=== PATIENT | male | born 1955 | race Caucasian/White ===

== ENCOUNTER 2016-05-10 15:07 | Inpatient (IN) | payer BC ==
--- NOTE | ~2016-05-10 | TN ---
Unit #: [id number] #: [id number] Patient: NIKKI BARGER [id number] [facility] [address] [place] [address] [id number] MR#: [id number] NAME: NIKKI BARGER. ROOM: P209 Age: 61 Sex: M Admission Date: 05/10/2016 : 1955 Discharge Date: 05/14/2016 Attending Physician: Chandan Eric M.D. Primary Care Physician: Primary Care Physician No LOC TRANSFER NOTE DATE OF SERVICE: 05/15/2016 DATE OF SERVICE 05/15/2016. HISTORY OF PRESENT ILLNESS Mr. Barger is a 61-year-old white male, who was stepped down to the outpatient treatment program from the adult inpatient chemical dependency unit, where he was hospitalized under my care from 05/10/2016 to 05/14/2016 and was medically detoxed from alcohol and was stepped down to the outpatient treatment program. When seen by me, however, he reports that he has been doing fairly well and has been taking the medications and tolerating them fairly well and has been coming to therapy groups and has been staying sober, but however, he states that his only issue is lack of sleep as he states that he slept only 30 minutes last night. SUBSTANCE ABUSE HISTORY The patient has a long history of alcohol dependence, and he describes alcohol to be his drug of choice and denies any other drug abuse. PAST PSYCHIATRIC HISTORY The patient has had a history of inpatient and outpatient psychiatric treatment and has been diagnosed and treated for alcohol dependence and mood disorder. Currently, he is not active in any treatment program and is not seeing a psychiatrist and is not taking any psychotropic medications. PAST MEDICAL HISTORY No acute or chronic medical illnesses. PERSONAL AND SOCIAL HISTORY A 61-year-old white male, who reports that he is unemployed and lives with his roommates and has fairly decent social support system. MENTAL STATUS EXAMINATION An elderly white male, who was casually dressed with fair personal hygiene, appears to be in no acute distress or discomfort. He was awake and alert on interaction with intact orientation. His mood was anxious with a congruent affect. He denies any suicidal or homicidal ideations. His insight and judgment remain slightly impaired. DIAGNOSTIC IMPRESSION Psychiatric: Alcohol dependence, moderate; in acute withdrawal and Unit #: [id number] #: [id number] Patient: NIKKI BARGER alcohol-induced mood disorder. Medical: None. Stressors: Moderate psychosocial stressors. TREATMENT PLAN 1. The patient has presented with a history of alcohol dependence. We will recommend enrolling him into the intensive outpatient treatment program for chemical dependency. We will start him on doxepin to help with sleep. 2. Supportive therapy was provided to the patient. ESTIMATED LENGTH OF STAY 14 to 21 days. ABILITY TO HELP SELF Limited. WILLINGNESS TO HELP SELF The patient appears to be willing to help self. STRENGTHS 1. Communicative. 2. Cooperative. PROBLEMS 1. Chronic chemical dependency. 2. Chronic dysphoric symptoms. DISCHARGE CRITERIA This will be contingent upon the patient's ability to show resolution of his depression and anxiety as well as his ability to stay safe and sober, particularly after discharge from the program. Dictated by... Kenya Valdez/demarco TD: 05/15/2016 19:33 JOB #: [id number] LOC TRANSFER NOTE Page 1 of 1 X Chandan Eric MD X LOC TRANSFER NOTE
--- NOTE | ~2016-05-10 | PA ---
Unit #: [id number] #: [id number] Patient: NIKKI BARGER [id number] [facility] [address] [place] [address] [id number] I MR#: [id number] NAME: NIKKI BARGER. ROOM: P209 Age: 61 Sex: M Admission Date: 05/10/2016 : 1955 Date of Assessment: Attending Physician: Chandan Eric M.D. Admitting Physician: Chandan Eric M.D. PSYCHIATRIC ASSESSMENT DATE OF SERVICE 05/10/2016. IDENTIFYING DATA Mr. Barger is a 61-year-old single white male, who is a resident of [place], [place], and is known to us from previous encounter and was self-referred to the hospital. CHIEF COMPLAINT "Alcohol abuse and I'm trying to get my life back together." HISTORY OF PRESENT ILLNESS Mr. Barger is a 61-year-old white male with long history of alcohol dependence, who was recently active under my care and was actively medically detoxed in 03/2016 and left on 03/27/2016 after finishing the medical detox; however, he now presents with a blood alcohol level of 0.152 and reports that he wants to get detoxed and that he has been abusing alcohol and is trying to get his life back together, and he reports that his life is getting out of control related to his drinking. He reports that he was doing good for a short period of time after getting out of the hospital and then he ended up relapsing and now reports drinking vodka on a daily basis and last drink was a couple of hours before coming to the hospital. He was seen to be rather anxious, withdrawn, unkempt, disheveled with sweats and body odor and tremors and shakes and slurred speech and stated that he is unsteady on his feet and has been having difficulty performing activities of daily living including taking care of his personal hygiene and did appear to be in some distress and discomfort and reports that he has estranged relationship with most of the people because of his drinking and that he has not been eating and sleeping good. He has been feeling depressed and feeling hopeless, but denies any suicidal ideations, intent, or plan. SUBSTANCE ABUSE HISTORY The patient reports alcohol to be his drug of choice and has been drinking since he was 16 years old and currently has been drinking 2 pints of vodka on a daily basis, with the last drink being a couple of hours before coming to the hospital and blood alcohol level was 0.152. PAST PSYCHIATRIC HISTORY The patient has had a history of multiple inpatient psychiatric hospitalizations at [facility], and review of the medical records indicated currently he is not active in any treatment program and is not seeing a psychiatrist and is not taking any psychotropic medications. Unit #: [id number] #: [id number] Patient: NIKKI BARGER PAST MEDICAL HISTORY COPD. ALLERGIES No known medication allergies. CURRENT MEDICATIONS None. FAMILY HISTORY The patient denies any known history of mental illness or substance abuse in the family. DEVELOPMENTAL HISTORY The patient denies any history of learning disability or developmental delays and also denies any history of physical or sexual abuse during childhood. PERSONAL AND SOCIAL HISTORY A 61-year-old white male, who reports that he is single, unemployed, and lives with a couple of roommates and has poor social support system. MENTAL STATUS EXAMINATION Middle-aged white male, who was casually dressed with fair personal hygiene, appears to be in no acute distress or discomfort. He was awake and alert on interaction with intact orientation to time, place, and person. His mood was anxious and depressed with a congruent affect. His speech was slow and restricted in content. His thought processes were disorganized with some looseness of associations. He denies any suicidal or homicidal ideations and also denies any auditory or visual hallucinations. His insight and judgment remain significantly impaired. DIAGNOSTIC IMPRESSION Psychiatric: Alcohol dependence, moderate, in acute withdrawals and alcohol-induced mood disorder. Medical: Chronic obstructive pulmonary disease. Stressors: Moderate psychosocial stressors. TREATMENT PLAN 1. The patient has presented with a history of substance abuse and dependence and appears to be in significant distress and discomfort. We will recommend inpatient medical detox. Alcohol detox protocol will be initiated. 2. Supportive therapy was provided to the patient. 3. Safe, structured, and nourishing environment will be provided. ESTIMATED LENGTH OF STAY 5 to 7 days. ABILITY TO HELP SELF Limited. WILLINGNESS TO HELP SELF The patient appears to be willing to help self. STRENGTHS 1. Communicative. 2. Cooperative. Unit #: [id number] #: [id number] Patient: NIKKI BAGRER PROBLEMS 1. Chronic dysphoric symptoms. 2. Chronic chemical dependency. 3. Poor social support system. DISCHARGE CRITERIA This will be contingent upon the patient's ability to go through detox without having any significant withdrawal symptoms as well as his ability to stay safe to himself, particularly after discharge from the hospital. Dictated by... Kenya Valdez/demarco TD: 05/11/2016 11:28 JOB #: [id number] PSYCHIATRIC ASSESSMENT Page 1 of 1 X Chandan Eric MD X PSYCHIATRIC ASSESSMENT
--- NOTE | ~2016-05-10 | DS ---
Unit #: [id number] #: [id number] [facility]: [facility] BARGER [id number] [facility] [address] [place] [address] [id number] I MR#: [id number] NAME: NIKKI BARGER. ROOM: P209 Age: 61 Sex: M Admission Date: 05/10/2016 : 1955 Discharge Date: 05/14/2016 Attending Physician: Chandan Eric M.D. Primary Care Physician: Primary Care Physician No DISCHARGE SUMMARY IDENTIFYING DATA Mr. Barger is a 61-year-old white male, who is a resident of [place], [place], and is known to us from previous encounter, was self-referred to the hospital. DISCHARGE DIAGNOSES Psychiatric: Alcohol dependence, moderate and acute withdrawals; alcohol-induced mood disorder. Medical: Chronic obstructive pulmonary disease. Stressors: Moderate psychosocial stressors. HISTORY OF PRESENT ILLNESS Please see initial psychiatric evaluation for details. PAST PSYCHIATRIC HISTORY Please see initial psychiatric evaluation for details. PAST MEDICAL HISTORY Please see initial psychiatric evaluation for details. HOSPITAL COURSE The patient was admitted to the adult chemical dependency and psychiatric unit at [facility] and was oriented to the hospital environment. Routine p.r.n. medications were initiated, and he was started back on his home medications and medications were adjusted and he was closely monitored. He was taking the medications regularly and was tolerating them fairly well and was able to show a decent and therapeutic response and as such, it was decided he will be discharged home and will continue treatment on an outpatient basis. DISCHARGE MEDICATIONS None. DISCHARGE CONDITION Stable. PROGNOSIS Fair. Dictated by... Chandan Eric M.D. IAA/modl Unit #: [id number] #: [id number] Patient: NIKKI BARGER TD: 05/14/2016 07:31 JOB #: [id number] DISCHARGE SUMMARY Page 1 of 1 X Chandan Eric MD X DISCHARGE SUMMARY
--- NOTE | ~2016-05-10 | PN ---
Unit #: [id number] #: [id number] Patient: NIKKI BARGER [id number] [facility] [address] [place] [address] [id number] I MR#: [id number] NAME: NIKKI BARGER. ROOM: P209 Age: 61 Sex: M Admission Date: 05/10/2016 : 1955 Attending Physician: Chandan Eric M.D. Admitting Physician: Chandan Eric M.D. Primary Care Physician: Primary Care Physician Sandrine ROSENBERG PROGRESS NOTES DATE OF SERVICE: 05/12/2016 SUBJECTIVE Mr. Barger is a 61-year-old white male with substance abuse and mood disorder, who was seen today and chart was reviewed and case was discussed with the staff. He was seen to be anxious, withdrawn and in some distress or discomfort and he goes to detox. Meanwhile, he has been taking the medications and tolerating them fairly well with no reported side effects. MENTAL STATUS EXAMINATION Middle-aged white male who was casually dressed with a fair personal hygiene, appears to be in no acute distress or discomfort. He was awake and alert with impaired attention and concentration. His mood was anxious with a congruent affect. He denies any suicidal or homicidal ideations. His insight and judgment remain slightly impaired. TREATMENT PLAN 1. We will continue him on his current treatment protocol. We will monitor his response to medications and make further adjustments as needed. 2. We will continue to follow up. Dictated by... Kenya Valdez/demarco TD: 05/13/2016 00:01 JOB #: [id number] [facility] PROGRESS NOTES Page 1 of 1 X Chandan Eric MD PROGRESS NOTE
--- NOTE | ~2016-05-10 | HP ---
Unit #: [id number] #: [id number] Patient: JULIEN KOHLER [id number] [place] [address] [id number] I MR#: [id number] NAME: JULIEN KOHLER. ROOM: P209 Age: 61 Sex: M Admission Date: 05/10/2016 : 1955 Attending Physician: Chandan Eric M.D. Admitting Physician: Chandan Eric M.D. Primary Care Physician: Primary Care Physician No HISTORY AND PHYSICAL HISTORY OF PRESENT ILLNESS Julien is a 61-year-old male admitted to [address] [place] [address] on 05/10/2016 for detox from alcohol. PAST MEDICAL HISTORY COPD. PAST SURGICAL HISTORY 1. Back surgery in 1997. 2. Cholecystectomy. 3. Appendectomy. ALLERGIES None. SOCIAL HISTORY Smokes 1-1/2 packs of cigarettes daily. Drinks 1-1/2 pints of alcohol daily. No illegal drug use. He is currently single and living alone. FAMILY HISTORY Noncontributory. REVIEW OF SYSTEMS CONSTITUTIONAL: No fever or chills. HEENT: Denies any sore throat, ear pain or runny nose. CARDIOVASCULAR: Denies chest pain, irregular heart rhythm or palpitations. CHEST: Denies shortness of breath or cough. No hemoptysis. GASTROINTESTINAL: Denies nausea, vomiting, diarrhea or chronic constipation. ENDOCRINE: Denies history of increased thirst or urination. No recent significant weight loss or gain. GENITOURINARY: Denies dysuria, frequency, or hematuria. SKIN: Denies any rashes. HEMATOLOGIC: Denies history of increased bleeding or bruising. MUSCULOSKELETAL: Denies any hot, swollen joints. No generalized muscle pain. NEUROLOGIC: Denies problems with vision or speech. No frequent, severe headaches. No numbness, tingling or weakness in any extremities. Denies loss of bladder or bowel control. CURRENT MEDICATIONS None. Unit #: [id number] #: [id number] Patient: JULIEN KOHLER PHYSICAL EXAMINATION GENERAL: Alert, oriented, in no acute distress. VITAL SIGNS: Blood pressure 143/75, heart rate 103, respirations 20, temperature 98.1. HEIGHT: 6 feet 3. WEIGHT: 175 pounds. SKIN: Warm and dry without rash or lesion. HEENT: Normocephalic. TMs not viewed. Oral and nasal passages clear. Conjunctivae clear. PERRLA. EOMs intact. NECK: Supple without lymphadenopathy or thyromegaly. HEART: Regular rate and rhythm without murmur. LUNGS: Clear. ABDOMEN: Soft, nontender, without masses or hepatosplenomegaly. : Not done. EXTREMITIES: No evidence of cyanosis, clubbing or edema. Moves all without focal deficit. NEUROLOGICAL: Grossly within normal limits. Cranial Nerves: II: Visual de luna are intact. III, IV AND : Extraocular movements are intact. Pupils are equal, round and reactive to light. V: Facial sensation is grossly normal. VII: Facial movements and expression are normal. VIII: Auditory acuity grossly intact. IX, X: Uvula is midline. Phonation is normal. XI: Patient shrugs shoulders and turns head normally. XII: Tongue protrudes in the midline. Sensory and Motor Function: Sensory and motor sensation is grossly normal. Motor: moves all extremities well. Coordination: Gait is normal. Deep Tendon Reflexes: Intact. IMPRESSION 1. Psychiatric admission. 2. COPD. RECOMMENDATIONS PSYCHIATRIC: Per psychiatrist. MEDICAL: No contraindications to participate in facility's activities. MEDICAL PROGNOSIS Good. MEDICAL CONDITION Stable. Dictated by... Pj Springer/rodger TD: 05/11/2016 18:38 JOB #: [id number] Unit #: [id number] #: [id number] Patient: JULIEN KOHLER HISTORY AND PHYSICAL Page 1 of 1 X ANSHUL QUINN APRN HISTORY AND PHYSICAL
--- NOTE | ~2016-05-10 | PN ---
Unit #: [id number] #: [id number] Patient: NIKKI BARGER [id number] [facility] [address] [place] [address] [id number] I MR#: [id number] NAME: NIKKI BARGER. ROOM: P209 Age: 61 Sex: M Admission Date: 05/10/2016 : 1955 Attending Physician: Chandan Eric M.D. Admitting Physician: Chandan Eric M.D. Primary Care Physician: Primary Care Physician Sandrine SINGH NOTES DATE 05/11/2016 DISCUSSION Mr. Barger is a 61-year-old, white male who was seen today and chart was reviewed and case was discussed with the staff. He has been anxious, withdrawn and in distress and discomfort and was unkept, disheveled and shaky, tremulous and wetting in his bed and actively detoxing. However, he has been polite and pleasant and maintaining a pleasant (1) towards treatment and has been comfortable to work with. MENTAL STATUS EXAM Middle-aged white male who was casually dressed with marginal personal hygiene, appears to be in distress or discomfort. He was awake and alert on interaction with intact orientation. His mood was anxious with congruent affect. His speech was slow and restricted in content. His thought process are organized. He denies any suicidal or homicidal ideation. Also, denies any auditory or visual hallucinations. His insight and judgement remains slightly impaired. TREATMENT PLAN 1. We will continue him on his current medications and detox protocol and level of precaution. We will monitor his response and make further adjustments as needed. 2. We will continue to follow up. Dictated by... Kenya Valdez/nicolasa TD: 05/13/2016 03:24 JOB #: [id number] Unit #: [id number] #: [id number] Patient: NIKKI BARGERARTEMIO PROGRESS NOTES Page 1 of 1 X Chandan Eric MD PROGRESS NOTE
--- NOTE | ~2016-05-10 | PN ---
Unit #: [id number] #: [id number] Patient: NIKKI BARGER [id number] [facility] [address] [place] [address] [id number] I MR#: [id number] NAME: NIKKI BARGER. ROOM: P209 Age: 61 Sex: M Admission Date: 05/10/2016 : 1955 Attending Physician: Chandan Eirc M.D. Admitting Physician: Chandan Eric M.D. Primary Care Physician: Primary Care Physician Sandrine ROSENBERG PROGRESS NOTES DATE May 13, 2016 DISCUSSION Mr. Barger is a 61-year-old white male, with alcohol dependence, and mood disorder, who was seen today and chart was reviewed and the case was discussed with the staff. He has been anxious, withdrawn, but has not shown any agitation, irritability, and has been cooperative with the treatment recommendations. He has been taking the medications and tolerating them fairly well with no reported side effects. MENTAL STATUS EXAMINATION Middle-aged white male, who was casually dressed with fair personal hygiene and appears to be in no acute distress or discomfort. He was awake and alert on interaction with intact orientation. His mood is anxious with a congruent affect. His speech is slow and goal-directed. His thought processes are disorganized. He denies any suicidal or homicidal ideations, and also denies any auditory or visual hallucinations. His insight and judgment remain slightly impaired. TREATMENT PLAN 1. We will continue him on his current medications and treatment protocol, and will monitor his response to the medications, and make further adjustments as needed. 2. We will continue to followup. Dictated by... Kenya Valdez/aimee TD: 05/15/2016 05:21 JOB #: [id number] Unit #: [id number] #: [id number] Patient: NIKKI BARGER PROGRESS NOTES Page 1 of 1 X Chandan Eric MD PROGRESS NOTE
[~2016-05-10 15:07] MED LIST: AZITHROMYCIN500 MG PO; COMBIVENT U/D3 M2 INH; HUMIBID-LA600 MG PO; NO MEDICATIONS
[2016-05-11 11:47] LABS: BASOPHIL# 0.1 X10e3 (0-0.3); BASOPHIL% 0.7 % (0-2.5); EOSINOPHIL# 0.4 X10e3 (0-0.7); EOSINOPHIL% 4.9 % (0.0-7.0); HEMATOCRIT 43.8 % (38.0-50.0); HEMOGLOBIN 14.3 gm/dL (13.0-16.0); LYMPHOCYTE% 26.2 % (17.0-45.0); MEAN CELL VOLUME 94.7 FL (83-96); MEAN CORPUSCULAR HEMOGLOBIN 30.9 PG (28-34); MEAN CORPUSCULAR HGB CONC 32.6 g/dL (30-36); MEAN PLATELET VOLUME 8.6 FL (6.5-11.5); MONOCYTE# 0.5 X10e3 (0-1.0); MONOCYTE% 6.1 % (3.0-12.0); NEUTROPHIL# 4.7 X10e3 (1.5-7.1); NEUTROPHIL% 62.1 % (40-75); PLATELET COUNT 276 X10e3 (140-420); RED BLOOD COUNT 4.62 X10e (3.90-5.60); RED CELL DISTRIBUTION WIDTH 14.1 % (11.0-15.5); WHITE BLOOD COUNT 7.6 X10e3 (4.0-10.5)
[2016-05-11 11:57] LABS: DIFF IND NO
[2016-05-11 12:01] LABS: THYROID STIMULATING HORMONE 0.9 uIU/ml (0.34-5.60)
[2016-05-11 12:06] LABS: ALBUMIN SERUM 3.8 g/dL (3.5-5.0); BILIRUBIN,TOTAL 2.1 mg/dL (0.2-2.0); BUN/CREATININE RATIO 24.28; CALCIUM SERUM 8.9 mg/dL (8.4-10.2); CREATININE SERUM 0.7 mg/dL (0.6-1.4); GLOM FILT RATE Estimated 102.6 mL/min (>60); POTASSIUM 4.3 mmol/L (3.5-5.1); PROTEIN TOTAL SERUM 6.6 g/dL (6.0-8.3)
[2016-05-11 12:08] LABS: FREE THYROXIN (T4) 0.99 ng/dL (0.58-1.64)
[2016-05-12 11:33] LABS: URINE APPEARANCE TURBID; URINE BLOOD NEG (NEG); URINE COLOR DK YELLOW; URINE GLUCOSE NEG (NEG); URINE KETONE 1+ (NEG); URINE LEUKOCYTE ESTERASE TRACE (NEG); URINE NITRATE NEG (NEG); URINE PROTEIN TRACE (NEG); URINE SPECIFIC GRAVITY 1.029 (1.003-1.035)
[2016-05-12 11:37] LABS: URINE BACTERIA AUWI NEG (NEGATIVE); URINE SQUAMOUS EPITHELIAL CELL NONE SEEN /[HPF]; UWBCS1 AUWI 0-2 (0-5)
[2016-05-12 11:58] LABS: URINE BILIRUBIN NEG (NEG)
[2016-05-12 12:26] LABS: AMPHETAMINE NEG (NEG); BARBITURATES NEG (NEG); BENZODIAZEPINES POS (NEG); COCAINE NEG (NEG); MARIJUANA NEG (NEG); OPIATES NEG (NEG); TRICYCLIC ANTIDEPRESSANTS NEG (NEG); U METHADONE NEG (NEG)
== END 2016-05-14 12:21 | DRG 897 ==
LOC: P2S 15:07
PROVIDERS: Psychiatry & Neurology Psychiatry
PROC: HZ2ZZZZ Detoxification Services for Substance Abuse Treatment (ICD-10-PCS; principal; 2016-05-10)
DX: F10.239 Alcohol dependence with withdrawal, unspecified (principal); F10.24 Alcohol dependence with alcohol-induced mood disorder; J44.9 Chronic obstructive pulmonary disease, unspecified; F17.200 Nicotine dependence, unspecified, uncomplicated; Z56.0 Unemployment, unspecified
CPT/HCPCS: 80053; 80307; 81003; 84439; 84443; 85025; 86592

== ENCOUNTER 2016-07-01 18:34 | Emergency (ER) | payer BC ==
--- NOTE | ~2016-07-01 | CR72 ---
[facility] A Service of [facility] RADIOLOGY TEXT RESULTS PATIENT: NIKKI KOHLER LOCATION: [facility] : 57 UNIT #: [id number] AGE: [address]: Yossi Herrera MD SEX: M ORDER DR: [id number] [facility] [address] [place], [place] [address] [id number] E MR#: [id number] Acc #: [id number] NAME: NIKKI KOHLER : 1955 SEX: M STUDY DATE/TIME: 07/01/2016 22:19 UNIT: [facility] ROOM: STUDY DESCRIPTION: CR Chest Single View Portable Attending Physician: Yossi Herrera M.D. Ordering Physician: Yossi Herrera M.D. Primary Care Physician: Primary Care Physician No MEDICAL IMAGING REPORT This report is preliminary unless electronic signature is present EXAM Portable chest, 07/01 at 22:19 INDICATIONS Shortness of air with activity, cough, congestion. Symptoms started 2 weeks ago but worsened today. History of smoking. FINDINGS AP portable views of the chest are compared with 03/13/2016. Lungs are emphysematous but clear. Cardiac and mediastinal contours are normal. There is no pneumothorax. IMPRESSION Emphysema. No active disease. Dictated by... Caesar Renner Jr., M.D. THIS IS AN ELECTRONICALLY VERIFIED REPORT Caesar Renner Jr., M.D. at 07/02/2016 6:01 AM YUMIKOK/alyssa TD: 07/02/2016 03:30 JOB #: [id number] MEDICAL IMAGING REPORT Page 1 of 1 COPY
--- NOTE | ~2016-07-01 | CT16 ---
[facility] A Service of [facility] & [facility] RADIOLOGY TEXT RESULTS PATIENT: NIKKI KOHLER LOCATION: [facility] : 57 UNIT #: [id number] AGE: [address]: Yossi Herrera MD SEX: M ORDER DR: [id number] [facility] [address] [place], [place] [address] [id number] MR#: [id number] Acc #: [id number] NAME: NIKKI KOHLER. : 1955 SEX: M STUDY DATE/TIME: 07/02/2016 01:14 UNIT: [facility] ROOM: STUDY DESCRIPTION: CT Angio Chest for PE Attending Physician: Yossi Herrera M.D. Ordering Physician: Yossi Herrera M.D. Primary Care Physician: Primary Care Physician No MEDICAL IMAGING REPORT This report is preliminary unless electronic signature is present EXAM Chest CTA 07/02 01:14 INDICATIONS Shortness of air, cough and congestion for the last 2 weeks. Elevated D-dimer. History of COPD. TECHNIQUE Axial images were obtained through the chest following IV contrast administration. 3-D reformats were obtained. Comparison made with 11/12/2015. This CT exam was performed with one or more of the following radiation dose reduction techniques: automatic exposure control, adjustment of mA and/or kV according to patient size, and iterative reconstruction. FINDINGS There is no pulmonary embolism or aortic dissection. There is no pleural or pericardial effusion. There is no adenopathy. There is emphysema. There is some mild infiltrate in the left lower lobe which may reflect an early pneumonia. Some of this could also reflect postinflammatory scarring as patient previously had infiltrates in this area. No suspicious pulmonary nodules are identified. Upper abdomen demonstrates cholecystectomy. There are adrenal calcifications on the right side which are unchanged and may reflect prior adrenal hemorrhage. There is fatty infiltration of the liver. IMPRESSION 1. No pulmonary embolism or aortic dissection. 2. Emphysema. 3. Minimal amount of alveolar infiltrate in the left lower lobe is probably due to mild acute pneumonia. Some of this could be due to postinflammatory scarring, however, as the patient had fairly [facility] A Service of [facility] & [facility] RADIOLOGY TEXT RESULTS PATIENT: NIKKI KOHLER LOCATION: [facility] #: [id number] : 57 UNIT #: [id number] AGE: [address]: Yossi Herrera MD SEX: M ORDER DR: pronounced infiltrate in the left lower lobe on the prior chest CT. 4. Fatty liver. Dictated by... Caesar Renner Jr., M.D. THIS IS AN ELECTRONICALLY VERIFIED REPORT Caesar Renner Jr., M.D. at 07/03/2016 5:52 AM Monica TD: 07/02/2016 06:35 JOB #: [id number] MEDICAL IMAGING REPORT Page 1 of 1 COPY
--- NOTE | ~2016-07-01 | EKG ---
PATIENT: NIKKI KOHLER UNIT #: [id number] Ventricular Rate: 99 BPM Atrial Rate: 99 BPM P-R Interval: 134 ms QRS Duration: 90 ms Q-T Interval: 338 ms QTC Calculation(Bezet): 433 ms P Rolfe: 82 degrees Calculated R Rolfe: 44 degrees Calculated T Rolfe: 69 degrees Diagnosis Line: Normal sinus rhythm with sinus arrhythmia Diagnosis Line: Right atrial enlargement Diagnosis Line: Borderline ECG Diagnosis Line: When compared with ECG of 12-MAR-2016 23:18, Diagnosis Line: No significant change was found Diagnosis Line: Confirmed by ALMA DELIA WOODARD MD ([id number]) on Diagnosis Line: 07/02/2016 1:31:36 PM INTERPRETING MD: VANCE MELGAR
[2016-07-01 19:13] LABS: BASOPHIL# 0.1 X10e3 (0-0.3); BASOPHIL% 0.6 % (0-2.5); EOSINOPHIL% 0.1 % (0.0-7.0); HEMATOCRIT 43.5 % (38.0-50.0); HEMOGLOBIN 14.7 gm/dL (13.0-16.0); LYMPHOCYTE# 1.2 X10e3 (1.0-3.5); LYMPHOCYTE% 11.9 % (17.0-45.0); MEAN CELL VOLUME 95.7 FL (83-96); MEAN CORPUSCULAR HEMOGLOBIN 32.3 PG (28-34); MEAN CORPUSCULAR HGB CONC 33.8 g/dL (30-36); MEAN PLATELET VOLUME 8.3 FL (6.5-11.5); MONOCYTE# 0.8 X10e3 (0-1.0); MONOCYTE% 7.8 % (3.0-12.0); NEUTROPHIL# 8.1 X10e3 (1.5-7.1); NEUTROPHIL% 79.6 % (40-75); PLATELET COUNT 263 X10e3 (140-420); RED BLOOD COUNT 4.55 X10e (3.90-5.60); RED CELL DISTRIBUTION WIDTH 15.3 % (11.0-15.5); WHITE BLOOD COUNT 10.1 X10e3 (4.0-10.5)
[2016-07-01 19:15] LABS: DIFF IND NO
[2016-07-01 19:25] LABS: POC - CKMB 3.5 ng/mL (0.0-7.9); POC - TROPONIN <0.05 ng/mL (<=0.05)
[2016-07-01 19:38] LABS: ALBUMIN SERUM 4.2 g/dL (3.5-5.0); BILIRUBIN, DIRECT 0.3 mg/dL (0.0-0.2); BILIRUBIN,INDIRECT 1.7 mg/dL (0.0-0.9); CALCIUM SERUM 8.7 mg/dL (8.4-10.2); CREATININE SERUM 1.1 mg/dL (0.6-1.4); GLOM FILT RATE Estimated 72.6 mL/min (>60); POTASSIUM 4.6 mmol/L (3.5-5.1); PROTEIN TOTAL SERUM 7.1 g/dL (6.0-8.3)
[2016-07-01 22:38] LABS: POC - CKMB 2.4 ng/mL (0.0-7.9); POC - TROPONIN <0.05 ng/mL (<=0.05)
== END 2016-07-02 03:35 | disposition home or self-care (01) ==
LOC: CED 18:34
PROVIDERS: Emergency Medicine
DX: J18.1 Lobar pneumonia, unspecified organism (principal); J44.9 Chronic obstructive pulmonary disease, unspecified; F17.200 Nicotine dependence, unspecified, uncomplicated
CPT/HCPCS: 36415; 71010; 71275; 80048; 80076; 82553; 84484; 85025; 85379; 93005; 94640; 96365; 99284; J0696; Q9967

== ENCOUNTER 2016-07-16 22:32 | Emergency (ER) | payer BC ==
--- NOTE | ~2016-07-16 | CT16 ---
[facility] A Service of [facility] & [facility] RADIOLOGY TEXT RESULTS PATIENT: NIKKI KOHLER LOCATION: [facility] : 57 UNIT #: [id number] AGE: [address]: CALEB SILVA APRN SEX: M ORDER DR: [id number] [facility] [address] [place], [place] [address] [id number] MR#: [id number] Acc #: [id number] NAME: NIKKI KOHLER. : 1955 SEX: M STUDY DATE/TIME: 07/17/2016 6:10 UNIT: [facility] ROOM: STUDY DESCRIPTION: CT Angio Chest for PE Attending Physician: Caleb Silva Aprn Ordering Physician: Caleb Silva Aprn Primary Care Physician: Primary Care Physician No MEDICAL IMAGING REPORT This report is preliminary unless electronic signature is present EXAM CT chest with pulmonary embolus protocol INDICATION Elevated D-dimer, cough, congestion for 2 weeks. TECHNIQUE Spiral imaging was performed through the chest with IV contrast and 3-D reconstructions of the pulmonary arteries were generated. This CT examination was performed with one or more of the following radiation dose reduction techniques: automatic exposure control, adjustment of mA and/or kV according to patient size, and iterative reconstruction. FINDINGS The visualized portions of the upper abdomen are normal. The aorta is normal in size. There is optimum opacification of the pulmonary arteries and there is no CT evidence of pulmonary embolus. The visualized thyroid gland is normal. There are 2 small noncalcified nodules in the right middle lobe measuring 4 and 5 mm in size. They are unchanged from 11/12/2015 which is about an 8 month follow up. Otherwise, the lungs are clear. The bones are unremarkable. IMPRESSION 1. There are no infiltrates and there is no evidence of pulmonary embolus. 2. There are 2 noncalcified nodules in the right middle lobe measuring 4 and 5 mm in diameter. Those nodules have been present on the prior 2 studies including the 11/12/2015 study so they have been documented as stable for 8 months. Unless there are older studies showing longer term stability, consider repeating the CT scan in approximately 1 year which could be a low-dose lung cancer screening study. 3. Otherwise, the study is negative. [facility]. [facility] A Service of [facility] & [facility] RADIOLOGY TEXT RESULTS PATIENT: NIKKI KOHLER LOCATION: [facility] : 57 UNIT #: [id number] AGE: [address]: CALEB SILVA APRN SEX: M ORDER DR: Dictated by... Scar Wilkinson M.D. THIS IS AN ELECTRONICALLY VERIFIED REPORT Scar Wilkinson M.D. at 07/17/2016 11:53 AM XOCHILT/tod TD: 07/17/2016 10:32 JOB #: [id number] MEDICAL IMAGING REPORT Page 1 of 1 COPY
--- NOTE | ~2016-07-16 | CR63 ---
[facility] A Service of [facility] & [facility] RADIOLOGY TEXT RESULTS PATIENT: NIKKI KOHLER LOCATION: [facility] : 57 UNIT #: [id number] AGE: [address]: CALEB SILVA APRN SEX: M ORDER DR: [id number] [facility] [address] [place], [place] [address] [id number] E MR#: [id number] Acc #: [id number] NAME: NIKKI KOHLER. : 1955 SEX: M STUDY DATE/TIME: 07/17/2016 3:03 UNIT: [facility] ROOM: STUDY DESCRIPTION: CR Chest 2 View Attending Physician: Caleb Silva Aprn Ordering Physician: Caleb Silva Aprn Primary Care Physician: Primary Care Physician No MEDICAL IMAGING REPORT This report is preliminary unless electronic signature is present EXAM Two-view chest INDICATION Shortness of air for the past 2 weeks. PROCEDURE Frontal lateral views of the chest COMPARISON 07/01/2016 FINDINGS Heart size within normal limits. No dense consolidation, effusion or pneumothorax. IMPRESSION No active process. No dense consolidation. Dictated by... Bernard Dasilva M.D. THIS IS AN ELECTRONICALLY VERIFIED REPORT Bernard Dasilva M.D. at 07/17/2016 10:10 PM Chris TD: 07/17/2016 09:49 JOB #: [id number] MEDICAL IMAGING REPORT Page 1 of 1 COPY
--- NOTE | ~2016-07-16 | EKG ---
PATIENT: NIKKI KOHLER UNIT #: [id number] Ventricular Rate: 68 BPM Atrial Rate: 68 BPM P-R Interval: 154 ms QRS Duration: 76 ms Q-T Interval: 410 ms QTC Calculation(Bezet): 435 ms P Momence: 79 degrees Calculated R Momence: 50 degrees Calculated T Momence: 69 degrees Diagnosis Line: Normal sinus rhythm with sinus arrhythmia Diagnosis Line: Septal infarct , age undetermined Diagnosis Line: Abnormal ECG Diagnosis Line: When compared with ECG of 01-JUL-2016 18:43, Diagnosis Line: Septal infarct is now Present Diagnosis Line: Confirmed by BARAK DAVIES MD ([id number]) on Diagnosis Line: 07/17/2016 2:02:14 PM INTERPRETING MD: KEKE MELGAR
[2016-07-17 03:35] LABS: BASOPHIL# 0.1 X10e3 (0-0.3); BASOPHIL% 1.2 % (0-2.5); EOSINOPHIL# 0.1 X10e3 (0-0.7); EOSINOPHIL% 1.1 % (0.0-7.0); HEMATOCRIT 45.9 % (38.0-50.0); HEMOGLOBIN 15.1 gm/dL (13.0-16.0); LYMPHOCYTE# 1.7 X10e3 (1.0-3.5); LYMPHOCYTE% 28.1 % (17.0-45.0); MEAN CELL VOLUME 98.2 FL (83-96); MEAN CORPUSCULAR HEMOGLOBIN 32.4 PG (28-34); MEAN PLATELET VOLUME 8.2 FL (6.5-11.5); MONOCYTE# 0.6 X10e3 (0-1.0); MONOCYTE% 9.5 % (3.0-12.0); NEUTROPHIL# 3.6 X10e3 (1.5-7.1); NEUTROPHIL% 60.1 % (40-75); PLATELET COUNT 357 X10e3 (140-420); RED BLOOD COUNT 4.67 X10e (3.90-5.60); RED CELL DISTRIBUTION WIDTH 16.2 % (11.0-15.5)
[2016-07-17 03:37] LABS: BUN/CREATININE RATIO 17.14; CALCIUM SERUM 9.1 mg/dL (8.4-10.2); CREATININE SERUM 0.7 mg/dL (0.6-1.4); GLOM FILT RATE Estimated 102.6 mL/min (>60); POTASSIUM 3.2 mmol/L (3.5-5.1)
[2016-07-17 03:38] LABS: DIFF IND NO
[2016-07-17 03:52] LABS: POC - CKMB 1.4 ng/mL (0.0-7.9); POC - TROPONIN <0.05 ng/mL (<=0.05)
== END 2016-07-17 08:03 | disposition home or self-care (01) ==
LOC: CED 22:32
PROVIDERS: Nurse Practitioner Family
DX: R91.1 Solitary pulmonary nodule (principal); J44.9 Chronic obstructive pulmonary disease, unspecified; Z90.49 Acquired absence of other specified parts of digestive tract; F17.210 Nicotine dependence, cigarettes, uncomplicated
CPT/HCPCS: 36415; 71020; 71275; 80048; 82553; 84484; 85025; 85379; 93005; 99284; Q9967

== ENCOUNTER 2016-08-08 18:30 | Emergency (ER) | payer BC | END 2016-08-09 00:31 | disposition home or self-care (01) | LOC: CED 18:30 | DX: F19.10 Other psychoactive substance abuse, uncomplicated (principal); F10.10 Alcohol abuse, uncomplicated; Z90.49 Acquired absence of other specified parts of digestive tract; F17.210 Nicotine dependence, cigarettes, uncomplicated | CPT/HCPCS: 99283 ==